=== PATIENT | female | born 1990 | race Caucasian/White ===

== ENCOUNTER 2017-03-03 14:08 | Emergency (ER) | payer BC ==
[~2017-03-03] VITALS: Ht 162.6 cm; Wt 71.7 kg
[~2017-03-03 14:08] MED LIST: BIRTH CONTROL; PROTONIX 40MG T40 MG PO
[2017-03-03 14:15] VITALS: TEMP 97.8
[2017-03-03] MEDS ORDERED: EPIPEN 2-PAK1 MG/ML IM (14:39)
[2017-03-03 15:26] VITALS: BP 132/66; PULSE 80
== END 2017-03-03 15:37 | disposition home or self-care (01) ==
LOC: COL.ER 14:08
DX: R06.02 Shortness of breath (principal); T78.1XXA Other adverse food reactions, not elsewhere classified, initial encounter
CPT/HCPCS: J0171; J1100; J1200; J7030